=== PATIENT | female | born 1960 | race Caucasian/White ===

== ENCOUNTER 2023-02-11 11:13 | Emergency (ER) | payer OTHER, SELFPAY ==
--- NOTE | 2023-02-11 11:14 | ED.SKABFB ---
HPI - Skin/Abscess/Foreign Bdy General Chief complaint: Skin/Abscess/Foreign Body Stated complaint: Rash,Facial Swelling Time Seen by Provider: 02/11/23 11:14 Source: patient Mode of arrival: ambulatory Limitations: no limitations History of Present Illness HPI narrative: Whitney is a 62-year-old female patient presenting to the clinic today with complaints of rash and facial swelling x2 days. She reports she was working out in the [place] on Sunday and developed a itchy red rash on Sunday night. States she does not feel that this is poison rosibel however she does have some kind of environmental allergy and she gets this every year. She has facial swelling with redness and 1 itchy red rash to her left arm. She denies any difficulty breathing, drooling, shortness of breath, or visual changes. No changes in soaps, shampoos, foods, medications, or other environmental factors. Related Data Allergies Allergy/AdvReac Type Severity Reaction Status Date / Time No Known Allergies Allergy Verified 02/11/23 11:14 Review of Systems Review of Systems: Pertinent positives per HPI. Patient denies any fever, chills, headache, visual changes, dizziness, cough, runny nose, sore throat, shortness of breath, chest pain, palpitations, nausea, vomiting, diarrhea, constipation, abdominal pain, or any urinary issues. PMFSH Comments At the time of my signature, I reviewed and agree with the nursing past medical, surgical, social, and family history. There is no relevant family history pertinent to the patient complaint. Exam Narrative: General: Well-developed, well nourished, in no apparent distress Head: Normocephalic, atraumatic Eyes: Pupils equally round and reactive to light bilaterally, EOM intact, sclera and conjunctive clear, no discharge, red raised itchy blistery like rash to the face with mild periorbital edema bilaterally Ears: TMs intact and clear, ear canals clear, no drainage, grossly hearing normal. Nose: Nares patent, no discharge, no inflammation, no sinus tenderness. Mouth: Oropharynx without lesions or masses, good dentition, MMM. Neck: Supple, trachea midline, no enlargement of anterior or posterior cervical nodes, no thyroid masses or goiter palpable. Cardio: Regular rate and rhythm, s1 and s2 normal, no murmur appreciated. Resp: Clear to auscultation bilaterally anteriorly and posteriorly, no rhonchi, rales, wheezing or rubs Integumentary: [place] Burn, warm, and dry, intact without lesion, 1 patched area of red itchy slightly raise scaly blistery looking rash to the left arm Course Course Emergency Course: Portions of this record may have been created with voice recognition software. Level of Care: Express Care Visit Vital Signs Vital signs: Vital signs reviewed MDM - Skin/Abscess/Foreign Bdy MDM Narrative Medical decision making narrative: At the time of visit patient is resting comfortably on the exam table. Dexamethasone 10 mg IM given in the clinic today. I suspect patient has contact dermatitis. Prescription for taper dose of prednisone was sent to the pharmacy and supportive measures were discussed with the patient she voiced understanding discharge instructions agrees to treatment plan. Differential Diagnosis Differential diagnosis: Likely abscess of skin or subcutaneous tissue, urticaria, allergic reaction to drug, insect bites and contact dermatitis Discharge Plan Discharge Clinical Impression: Allergic contact dermatitis due to plant Patient Disposition: Home, Self-Care Condition: Stable Instructions: Antibiotic Form, Contact Dermatitis (ED), Cold Compress or Soak (ED) Additional Instructions: Dexamethasone 10 mg IM given in the clinic today Take prednisone as directed-start February 13, 2023 Avoid hot showers May apply calamine lotion to rash Avoid scratching and this causes rash to spread, itch to intensify, and could cause secondary infection May take benadryl 25-50mg every 6 hours as
[2023-02-11 11:25] VITALS: BP 151/94; PULSE 76; RESP 16; TEMP 36.7; O2SAT 97
== END 2023-02-11 11:40 | disposition home or self-care (01) ==
PROVIDERS: Emergency Provider Nurse Practitioner Family
DX: L23.7 Allergic contact dermatitis due to plants, except food (principal)
CPT/HCPCS: 96372; 99213; G0463; J1100